=== PATIENT | female | born 2000 | race African-American/Black ===

== ENCOUNTER 2020-03-26 21:06 | Emergency (ER) | payer MEDICAID ==
[~2020-03-26] VITALS: Ht 162.6 cm; Wt 59.0 kg
[2020-03-26 21:22] VITALS: BP 118/68
== END 2020-03-27 00:30 | disposition left against medical advice (07) ==
LOC: ER 21:06
DX: Z53.21 Procedure and treatment not carried out due to patient leaving prior to being seen by health care provider (principal)
CPT/HCPCS: 93005

== ENCOUNTER 2020-10-20 04:44 | Emergency (ER) | payer MEDICAID ==
[~2020-10-20] VITALS: Ht 170.2 cm; Wt 61.0 kg
[2020-10-20] MEDS ORDERED: ONDANSETRON HCL 4MG/2ML INJ IV STA (05:28)
[2020-10-20] MEDS ORDERED: MORPHINE SULFATE 4 MG/ML CPJ (NOT FOR IM USE) IV STA (05:28)
[2020-10-20] MEDS ORDERED: SODIUM CHLORIDE 0.9% 1,000 ML IV ONE ×2 (05:30→10:15)
[2020-10-20 06:05] LABS: BASOPHILS % 0.3 % (0.0-2.0); EOSINOPHILS % 0.3 % (0.0-5.0); HEMATOCRIT. 39.5 % (36.0-48.0); HEMOGLOBIN. 12.7 g/dL (12.0-16.0); LYMPHOCYTES % 16.6 % (20.0-50.0); MEAN CORPUSCULAR HEMOGLOBIN 28.3 pg (28.0-32.0); MEAN CORPUSCULAR VOLUME 88.2 fL (81.0-99.0); MEAN PLATELET VOLUME 9.9 fl (7.4-10.4); MONOCYTES % 8.1 % (2.0-8.0); NEUTROPHILS % 74.7 % (40.0-76.0); PLATELET 203 x1000/uL (130-400); RED BLOOD CELL COUNT 4.48 mill/uL (4.2-5.4); RED CELL DISTRIBUTION WIDTH 14.8 % (11.6-14.6)
[2020-10-20 06:12] LABS: CHLORIDE 109 mEq/L (98-107)
[2020-10-20 06:23] LABS: HCG SCREEN NEGATIVE
[2020-10-20 10:36] LABS: CLARITY URINE TURBID (CLEAR); COLOR URINE YELLOW (YELLOW); KETONES URINE 2+ (NEGATIVE); LEUKOCYTE ESTERASE URINE 1+ (NEGATIVE); NITRITE URINE NEGATIVE (NEGATIVE); OCCULT BLOOD URINE 3+ (NEGATIVE); PH URINE 5.5 (4.5-8.0); PROTEIN URINE TRACE (NEGATIVE); SPECIFIC GRAVITY URINE 1.024 (1.005-1.030); UROBILINOGEN URINE 0.2 E.U./dL (0.2-1.0)
[2020-10-20] MEDS ORDERED: KETOROLAC 30MG/ML VIAL IV ONE (11:45)
[2020-10-20 12:20] VITALS: BP 113/69
[2020-10-20] MEDS ORDERED: IBUP-2029 MT (12:57)
[2020-10-20] MEDS ORDERED: NITR-87 MT (12:57)
[2020-10-20] MEDS ORDERED: ONDA4TAB5 MT (12:57)
== END 2020-10-20 13:09 | disposition home or self-care (01) ==
LOC: ER 04:44
DX: R10.30 Lower abdominal pain, unspecified (principal); R55 Syncope and collapse; J45.909 Unspecified asthma, uncomplicated
CPT/HCPCS: 36415; 76830; 76856; 80053; 81003; 83690; 84703; 85025; 86850; 86900; 86901; 93005; 96361; 96374; 96375; 99285; J1885; J2270; J2405; J7030; Z7610

== ENCOUNTER 2023-06-21 18:14 | Emergency (ER) | payer SELFPAY ==
[~2023-06-21] VITALS: Ht 175.3 cm; Wt 70.0 kg
[~2023-06-21 18:14] MED LIST: IBUP-2029 MT; NITR-87 MT; ONDA4TAB5 MT
[2023-06-21 18:23] VITALS: BP 132/80; PULSE 100; RESP 18; TEMP 98.4; O2SAT 98
[2023-06-21] MEDS ORDERED: HYDR-4001 MT (19:17)
[2023-06-21] MEDS ORDERED: MUPI22OI2 TP (19:17)
== END 2023-06-21 19:27 | disposition home or self-care (01) ==
LOC: ER 18:14
DX: T21.02XA Burn of unspecified degree of abdominal wall, initial encounter (principal); J45.909 Unspecified asthma, uncomplicated; X58.XXXA Exposure to other specified factors, initial encounter; Y93.89 Activity, other specified; Y92.89 Other specified places as the place of occurrence of the external cause; Y99.8 Other external cause status
CPT/HCPCS: 99283